=== PATIENT | male | born 1945 | race Two or more races ===

== ENCOUNTER 2024-06-23 19:42 | Emergency (ER) | payer OTHER, MEDICAID, SELFPAY ==
[2024-06-23 20:08] VITALS: BP 109/65; PULSE 88; RESP 18; TEMP 37.2; O2SAT 98
--- NOTE | 2024-06-23 20:18 | EKG_ITS ---
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
[2024-06-23 20:19] VITALS: BMI 20.5
--- NOTE | 2024-06-23 20:39 | XR_ITS ---
Examination: PA chest single view Technique: Upright PA chest single view Exam date and time: June 23, 2024 at 2045 hrs. Comparison February 10, 2024 Indications: Chest pain today Findings: Normal heart size Mild elevation left hemidiaphragm Moderate hyperexpansion Prominent central pulmonary arteries No pneumonia or pulmonary edema Moderate osteopenia Impression: COPD No pneumonia or pulmonary edema
--- NOTE | 2024-06-23 20:40 | PD.EDRME ---
Rapid Medical Screening Exam RME Arrival date/time: 06/23/24 19:42 78M with history of prostate cancer (remission) and HTN presents to ED with 2 days of CP, ab, and back pain, as well as being unable to pee. Chief Complaint: Abdominal Pain Vital signs: Vital Signs Temperature 98.9 F 06/23/24 20:08 Pulse Rate 88 06/23/24 20:08 Respiratory Rate 18 06/23/24 20:08 Blood Pressure 109/65 06/23/24 20:08 Pulse Oximetry (%) 98 06/23/24 20:08 Oxygen Delivery Method Room Air 06/23/24 20:08
[2024-06-23 21:10] LABS: Basophils % (Auto) 0 % (0-2.5); Eosinophils # (Auto) 0.1 Thou/mm3 (0.0-0.5); Eosinophils % (Auto) 1 % (0-10); Hematocrit 33.6 % (41.0-53.0); Hemoglobin 11.2 g/dL (13.5-16.0); Immature Granulocytes % (Auto) 0 % (0-0); Immature Granulocytes Auto 0.01 Thou/mm3 (0.00-0.00); Lymphocytes # (Auto) 1.1 Thou/mm3 (1.0-4.8); Lymphocytes % (Auto) 13 % (10-50); Mean Corpuscular HGB Conc 33.3 g/dl (31.0-37.0); Mean Corpuscular Hemoglobin 25.7 pg (25.0-35.0); Mean Corpuscular Volume 77 fL (80-100); Monocytes # (Auto) 0.2 Thou/mm3 (0.0-0.8); Monocytes % (Auto) 2 % (0-12); Neutrophils # (Auto) 6.5 Thou/mm3 (1.8-7.7); Neutrophils % (Auto) 83 % (37-80); Nucleated Red Blood Cell % 0 /100 WBC (0); Platelet Count 253 Thou/mm3 (140-440); RDW Standard Deviation 50.5 fL (35.1-43.9); Red Blood Count 4.36 Miln/mm3 (4.50-5.90); White Blood Count 7.9 Thou/mm3 (3.8-10.6)
[2024-06-23 21:46] LABS: Alanine Aminotransferase 15 U/L (10-49); Albumin, Serum 4.3 gm/dL (3.4-4.8); Albumin/Globulin Ratio 1.7 (1.2-2.2); Alkaline Phosphatase 88 U/L (46-116); Anion Gap 7 (7-16); Aspartate Amino Transferase 32 U/L (0-34); BUN/Creatinine Ratio 27 Ratio (12-20); Bilirubin,Total 0.8 mg/dL (0.3-1.2); Blood Urea Nitrogen 24 mg/dL (9-23); Carbon Dioxide 24.1 mMol/L (20.0-31.0); Chloride 107 mMol/L (98-107); Creatinine (Component) 0.9 mg/dL (0.6-1.3); Estimated Creatinine Clearance 63.8 mL/min (>60); Globulin 2.6 gm/dL (2.3-3.5); Glucose 96 mg/dL (74-106); Lipase 44 U/L (12-53); Osmolality,Calculated 279 (275-295); Potassium 3.8 mMol/L (3.4-5.1); Sodium 138 mMol/L (136-145); Total Protein 6.9 gm/dL (5.7-8.2); Troponin I < 0.020 ng/mL (0.0-0.045); eGFR > 60 See Note
[2024-06-23 22:50] VITALS: BP 135/74; PULSE 73; RESP 18; O2SAT 100
[2024-06-23 23:19] LABS: Collection Type, Urine Catheter; Squamous Epithelial Cell,Urine 0 /hpf (0-5)
--- NOTE | 2024-06-23 23:20 | EDNOTE_ITS ---
ED Abdominal Pain RME/HPI General Chief Complaint: Abdominal Pain Stated complaint: ABDOMIAL PAIN Time seen by provider: 06/23/24 22:36 Arrival date/time: 06/23/24 19:42 Limitations: no limitations RME / HPI RME / HPI narrative: 06/23/24 19:42 78M with history of prostate cancer (remission) and HTN presents to ED with 2 days of CP, ab, and back pain, as well as being unable to pee. Dr. Wilkins's Main ED Evaluation: 78yo male with a history of prostate CA in remission, HTN presents to the ED for complaints of difficulty urinating and lower abdominal discomfort. Patient states he started having difficulty urinating yesterday, reporting his urine output decreased today. He states he started having abdominal discomfort, so he came in for evaluation. He denies any back pain, fever, chills or any other associated symptoms. No known allergies. Related Data Previous Rx's ?Medication ?Instructions ?Recorded ibuprofen 600 mg tablet 600 mg PO Q6HR PRN PAIN #30 tabs 02/08/14 cyclobenzaprine 10 mg tablet 10 mg PO TID PRN muscle s pasm #30 02/10/24 tabs ibuprofen 600 mg tablet 600 mg PO TID PRN pain #30 t abs 02/10/24 Allergies Allergy/AdvReac Type Severity Reaction Status Date / Time No Known Allergies Allergy Verified 06/23/24 19:48 Review of Systems Review of Systems Systems Reviewed: All systems reviewed, normal except as documented ED Exam General Limitations: Present no limitations General appearance: Present alert and in no apparent distress Head Head exam: Present atraumatic Eye Eye exam: Present normal appearance, PERRL and EOMI ENT ENT exam: Present normal exam, normal oropharynx and mucous membranes moist Neck Neck exam: Present normal inspection, full ROM and trachea midline Chest Chest inspection: Present normal inspection and symmetric chest wall rise Respiratory Respiratory exam: Present normal lung sounds bilaterally Cardiovascular Cardiovascular exam: Present regular rate, normal rhythm and normal heart sounds Abdominal Exam Abdominal exam: Present soft and normal bowel sounds; Absent mass exam: Present other (has an indwelling catheter that is draining yellow urine) Extremities Exam Extremities exam: Present normal inspection and full ROM Back Exam Back exam: Present normal inspection and full ROM; Absent CVA tenderness (R) or CVA tenderness (L) Neurological Exam Neurological exam: Present alert, oriented X3 and CN II-XII intact Psychiatric Psychiatric exam: Present normal affect and normal mood Skin Skin exam: Present warm, dry, intact and normal color Course Quality Measures none Orders Category Date Time Status EKG (ED ONLY) *Do not use* NOW Care 06/23/24 20:18 Completed In and Out Catheter X1 Care 06/23/24 20:39 Active EKG (ED Only) Stat Exams 06/23/24 20:18 Draft XR chest 1V portable Stat Exams 06/23/24 20:39 Completed CBC Stat Lab 06/23/24 20:54 Completed Comprehensive Metabolic Panel Stat Lab 06/23/24 20:54 Completed Lipase Stat Lab 06/23/24 20:54 Completed Troponin I Stat Lab 06/23/24 20:54 Completed Urinalysis, C/S if Indicated Stat Lab 06/23/24 23:04 Completed Vital Signs Vital signs: Vital Signs Temperature 98.9 F 06/23/24 20:08 Pulse Rate 88 06/23/24 20:08 Respiratory Rate 18 06/23/24 20:08 Blood Pressure 109/65 06/23/24 20:08 Pulse Oximetry (%) 98 06/23/24 20:08 Oxygen Delivery Method Room Air 06/23/24 20:08 Abdominal Pain MDM Patient data External records reviewed:: [facility] previous records (Per chart review, patient has no relevant previous ED visits.) Clinical information provided by:: patient Social determinants that could affect healthcare access:: none Patient has the following chronic illnesses:: prostate CA in remission, HTN How is presenting disease/condition affected by chronic disease/condition?: uneffected by Evaluation data The following diagnostics were reviewed and interpreted by me:: lab results and radiology exam(s) Lab and/or radiology exams considered but not ordered:: none Interpretation Summary: CBC is normal, CMP is normal, Troponin is normal, Lipase is normal, UA is unremarkable, according to my interpretation. EKG done at 2023, NSR, rate of 76, PVCs, no ST elevations or depressions, normal intervals, PVCs are new compared to previous EKG in 01/2024, according to my interpretation. [facility] Report Signed Patient: JEREL THORNE Med. Record#: [id number] Birthdate: 1945 Age/Sex: 78 / M Location: [facility] Attending Dr: Ordering Physician: Hugh Cruz PA-C Date of Service: 06/23/24 Procedure(s): XR chest 1V portable Accession Number(s): [id number] cc: Arvin Lemus MD; Hugh Cruz PA-C~ Examination: PA chest single view Technique: Upright PA chest single view Exam date and time: June 23, 2024 at 2045 hrs. Comparison February 10, 2024 Indications: Chest pain today Findings: Normal heart size Mild elevation left hemidiaphragm Moderate hyperexpansion Prominent central pulmonary arteries No pneumonia or pulmonary edema Moderate osteopenia Impression: COPD No pneumonia or pulmonary edema Dictated By: Arvin Lemus MD Signed By: <Electronically signed by Arvin Lemus MD in OV> 06/23/242101 Medications / Prescriptions Medications or Prescriptions considered but not ordered:: none Medication administrations:: see above, if any Consultations Consultation(s) initiated? (list below): No Diagnosis Differential diagnosis abdominal pain: calculus of kidney and other (urinary retention, UTI, BPH) Most likely diagnosis given after review of the tests above:: see below Admission Indicated Admission indicated?: not indicated Admission Request Was there a request for admission?: No Disposition Plan Disposition Plan: Discharge Discharge Attestation Discharge Attestation: The patient and all family members were given an opportunity to ask questions and understood the discharge instructions. Discharge instructions specifically effects, indications for sooner follow up or return to the emergency department, and the expected course of current diagnosis. Patient condition: Stable Discharge Plan Prescriptions/Referrals Prescriptions/Med Rec: No Action ibuprofen 600 MG tablet 600 mg PO Q6HR PRN (Reason: PAIN) Qty: 30 0RF cyclobenzaprine 10 mg tablet 10 mg PO TID PRN (Reason: muscle spasm) Qty: 30 0RF ibuprofen 600 mg tablet 600 mg PO TID PRN (Reason: pain) Qty: 30 0RF Referrals: Hyacinth Nelson MD [Primary Care Provider] - In 1 week Patient/Caregiver Discharge Instructions Print Language: Japanese
[2024-06-23 23:25] LABS: Bilirubin,Urine Negative (Negative); Blood,Urine 1+ (Negative); Clarity,Urine Clear (Clear/Hazy); Color,Urine Yellow (Lt Yel-Yel); Culture Indicated,Urine Not Indicated; Glucose, Urine Negative (Negative); Ketones,Urine Trace (Negative); Leukocyte Esterase,Urine Negative (Negative); Nitrite,Urine Negative (Negative); Protein,Urine Trace (Neg - Trace); RBC,Urine 4 /hpf (0-3); Specific Gravity,Urine 1.028 (1.001-1.035); Urobilinogen,Urine Negative mg/dL (0.0-1.0); WBC,Urine 1 /hpf (0-5)
== END 2024-06-24 01:12 | disposition home or self-care (01) ==
PROVIDERS: Physician Assistant; Emergency Provider Emergency Medicine; PCP Internal Medicine
DX: R10.30 Lower abdominal pain, unspecified (principal); R39.11 Hesitancy of micturition; J44.9 Chronic obstructive pulmonary disease, unspecified; I49.3 Ventricular premature depolarization; I10 Essential (primary) hypertension; Z85.46 Personal history of malignant neoplasm of prostate
CPT/HCPCS: 36415; 71045; 80053; 81001; 83690; 84484; 85025; 93005; 99283

== ENCOUNTER 2024-06-27 11:48 | Emergency (ER) | payer OTHER, MEDICAID, SELFPAY ==
[2024-06-27 12:08] VITALS: BP 131/83; PULSE 67; RESP 17; TEMP 36.6; O2SAT 100; BMI 20.5
--- NOTE | 2024-06-27 12:14 | EDNOTE_ITS ---
ED General RME/HPI General Chief complaint: General Adult/Misc Complain Stated complaint: GET DAVIS REMOVED, PLACED 2-3 DAYS Time Seen by Provider: 06/27/24 12:04 Source: patient Arrival date/time: 06/27/24 11:48 78-year-old male with a history of prostate cancer that is in remission, hyp ertension presents to the emergency room with a chief complaint of wanting to get his Davis catheter removed. The catheter was placed on June 23, 2024 for urinary retention. Patient states he is aware over the catheter placed but states he wants it removed. Patient states he does not want the catheter in and states that he wants it removed and if his urinary retention returns he will return to the emergency room. Mode of arrival: ambulatory Limitations: no limitations Related Data Previous Rx's ?Medication ?Instructions ?Recorded ibuprofen 600 mg tablet 600 mg PO Q6HR PRN PAIN #30 tabs 02/08/14 cyclobenzaprine 10 mg tablet 10 mg PO TID PRN muscle s pasm #30 02/10/24 tabs ibuprofen 600 mg tablet 600 mg PO TID PRN pain #30 t abs 02/10/24 Allergies Allergy/AdvReac Type Severity Reaction Status Date / Time No Known Allergies Allergy Verified 06/27/24 11:53 Review of Systems Review of Systems Systems Reviewed: All systems reviewed, normal except as documented Constitutional Constitutional: Reports system reviewed and no additional complaints, except as documented, Denies fatigue, Denies fever(s), Denies headache(s) and Denies weakness Eyes Eyes: Reports system reviewed and no additional complaints, except as documented, Denies blurry vision and Denies change in vision ENT Ears, Nose, Mouth, and Throat: Reports system reviewed and no additional complaints, except as documented, Denies otalgia, Denies headache(s), Denies nasal congestion, Denies throat swelling and Denies vertigo Cardiovascular Cardiovascular: Reports system reviewed and no additional complaints, except as documented, Denies chest pain, Denies dyspnea and Denies dyspnea on exertion Respiratory Respiratory: Reports system reviewed and no additional complaints, except as documented, Denies chest congestion, Denies cough, Denies dyspnea, Denies dyspnea on exertion and Denies wheezing Gastrointestinal Gastrointestinal: Reports system reviewed and no additional complaints, except as documented, Denies abdominal pain, Denies cramping, Denies nausea and Denies vomiting Genitourinary Genitourinary: Reports system reviewed and no additional complaints, except as documented, Denies dysuria and Denies hematuria Musculoskeletal Musculoskeletal: Reports system reviewed and no additional complaints, except as documented and Denies back pain Integumentary/Breasts Skin/Breast: Reports system reviewed and no additional complaints, except as documented and Denies wounds Neurologic Neurologic: Reports system reviewed and no additional complaints, except as documented, Denies confusion, Denies headache(s), Denies lack of coordination, Denies vertigo and Denies weakness Psychiatric Psychiatric: Reports system reviewed and no additional complaints, except as documented, Denies anxiety, Denies confusion, Denies depression, Denies paranoia, Denies suicidal ideation and Denies tactile hallucinations Endocrine Endocrine: Reports system reviewed and no additional complaints, except as documented and Denies fatigue Hematologic/Lymphatic Hematologic/Lymphatic: Reports system reviewed and no additional complaints, except as documented and Denies lymphadenopathy Allergic/Immunologic Allergic/Immunologic: Reports system reviewed and no additional complaints, except as documented, Denies throat swelling, Denies urticaria and Denies wheezing Past Medical History Social History SMOKING STATUS: Former smoker ED Exam General Limitations: Present no limitations General appearance: Present alert and in no apparent distress Head Head exam: Present atraumatic Eye Eye exam: Present normal appearance, PERRL and EOMI ENT ENT exam: Present normal exam, normal oropharynx and mucous membranes moist Neck Neck exam: Present normal inspection, full ROM and trachea midline Chest Chest inspection: Present normal inspection and symmetric chest wall rise Respiratory Respiratory exam: Present normal lung sounds bilaterally Cardiovascular Cardiovascular exam: Present regular rate, normal rhythm and normal heart sounds Abdominal Exam Abdominal exam: Present soft and normal bowel sounds Extremities Exam Extremities exam: Present normal inspection and full ROM Back Exam Back exam: Present normal inspection and full ROM Neurological Exam Neurological exam: Present alert, oriented X3 and CN II-XII intact Psychiatric Psychiatric exam: Present normal affect and normal mood Skin Skin exam: Present warm, dry, intact and normal color Course Quality Measures none Orders Category Date Time Status Davis [Urinary Catheter, Remove] ONCE Care 06/27/24 12:07 Active Vital Signs Vital signs: Vital Signs Temperature 97.9 F 06/27/24 12:08 Pulse Rate 67 06/27/24 12:08 Respiratory Rate 17 06/27/24 12:08 Blood Pressure 131/83 H 06/27/24 12:08 Pulse Oximetry (%) 100 06/27/24 12:08 Oxygen Delivery Method Room Air 06/27/24 12:08 MDM Patient data External records reviewed:: [facility] previous records Clinical information provided by:: patient Social determinants that could affect healthcare access:: none Patient has the following chronic illnesses:: No chronic illness How is presenting disease/condition affected by chronic disease/condition?: no chronic disease Evaluation data The following diagnostics were reviewed and interpreted by me:: lab results and radiology exam(s) Lab and/or radiology exams considered but not ordered:: Labs and radiology exams considered and ordered Interpretation Summary: N/A Medications Medications considered but not ordered:: No medication given Medication administrations:: No medication given Consultations Consultation(s) initiated? (list below): No Diagnosis Differential Diagnosis ED Complaint MDM: Urinary catheter removal Most likely diagnosis given after review of the tests above:: Urinary catheter removal Admission Indicated Admission indicated?: not indicated Explain why admission is indicated or not indicated:: N/A Admission Request Was there a request for admission?: No Disposition Plan Disposition Plan: Discharge Discharge Attestation Discharge Attestation: The patient and all family members were given an opportunity to ask questions and understood the discharge instructions. Discharge instructions specifically effects, indications for sooner follow up or return to the emergency department, and the expected course of current diagnosis. Patient condition: Stable Medical Decision Making [facility] Narrative MDM Narrative: 78-year-old male with a history of prostate cancer that is in remission, hypertension presents to the emergency room with a chief complaint of wanting to get his Davis catheter removed. The catheter was placed on June 23, 2024 for urinary retention. Patient states he is aware over the catheter placed but states he wants it removed. Patient states he does not want the catheter in and states that he wants it removed and if his urinary retention returns he will return to the emergency room. Patient is hemodynamically stable and in no apparent distress Patient has a soft nontender abdomen. Catheter was removed with no complications. The patient was placed in the lobby and within 45 minutes the patient urinated. Patient was educated that this catheter was placed for urinary retention that is very likely that the symptoms will return. The patient was very adamant about removing this urinary catheter and states to please remove it and that he this returns he will be back to the emergency room to put the catheter in place again. Catheter was removed the patient gave a urine sample and patient was discharged and educated to follow-up with his primary care provider, urologist and return to the emergency room for any evidence of worsening signs or symptoms Differential Diagnosis Differential Diagnosis: Urinary catheter removal Discharge Plan Plan Patient Disposition: HOME (Self Care) Disposition Comment: Stable Prescriptions/Referrals Prescriptions/Med Rec: No Action ibuprofen 600 MG tablet 600 mg PO Q6HR PRN (Reason: PAIN) Qty: 30 0RF cyclobenzaprine 10 mg tablet 10 mg PO TID PRN (Reason: muscle spasm) Qty: 30 0RF ibuprofen 600 mg tablet 600 mg PO TID PRN (Reason: pain) Qty: 30 0RF Referrals: Hyacinth Nelson MD [Primary Care Provider] - In 1 week Problem List Clinical Impression: Encounter for removal of urinary catheter Patient/Caregiver Discharge Instructions Additional Instructions: Por favor, consulte con henderson m?dico de cabecera en las pr?ximas 24 a 48 horas. Por favor, no falte a henderson renetta con henderson ur?logo. Si hay evidencia de empeoramiento de los signos o s?ntomas, regrese a la pawan de emergencias de inmediato. Print Language: Urdu Stand Alone Forms: Leanne Award Info., Patient Portal Info Letter MEMO/CHACHA Supervising Physician MEMO/CHACHA Supervising Physician: Dr. Mora
== END 2024-06-27 13:07 | disposition home or self-care (01) ==
PROVIDERS: Emergency Provider Emergency Medicine; PCP Internal Medicine
DX: Z46.6 Encounter for fitting and adjustment of urinary device (principal)
CPT/HCPCS: 99282

== ENCOUNTER 2024-06-28 00:09 | Emergency (ER) | payer OTHER, MEDICAID, SELFPAY ==
[2024-06-28 00:21] VITALS: BP 127/71; PULSE 68; RESP 16; TEMP 36.8; O2SAT 99
--- NOTE | 2024-06-28 00:46 | EDNOTE_ITS ---
ED Male Genitalurinary RME/HPI General Chief complaint: Urogenital-Male Stated complaint: CANT PEE Time Seen by Provider: 06/28/24 00:34 Arrival date/time: 06/28/24 00:09 78M with history of prostate cancer (remission) and HTN presents to ED with urinary retention. Patient was here yesterday and wanted the Gifford out because it was uncomfortable. Now he can't pee. Limitations: no limitations Related Data Previous Rx's ?Medication ?Instructions ?Recorded ibuprofen 600 mg tablet 600 mg PO Q6HR PRN PAIN #30 tabs 02/08/14 cyclobenzaprine 10 mg tablet 10 mg PO TID PRN muscle s pasm #30 02/10/24 tabs ibuprofen 600 mg tablet 600 mg PO TID PRN pain #30 t abs 02/10/24 Allergies Allergy/AdvReac Type Severity Reaction Status Date / Time No Known Allergies Allergy Verified 06/27/24 11:53 Review of Systems Review of Systems Systems Reviewed: All systems reviewed, normal except as documented Constitutional Constitutional: Reports system reviewed and no additional complaints, except as documented, Denies fever(s) and Denies headache(s) ENT Ears, Nose, Mouth, and Throat: Denies disequilibrium and Denies headache(s) Cardiovascular Cardiovascular: Reports system reviewed and no additional complaints, except as documented, Denies chest pain and Denies dyspnea Respiratory Respiratory: Reports system reviewed and no additional complaints, except as documented, Denies cough and Denies dyspnea Gastrointestinal Gastrointestinal: Reports system reviewed and no additional complaints, except as documented, Denies abdominal pain, Denies nausea and Denies vomiting Genitourinary Genitourinary: Reports as per HPI and Reports difficulty urinating Neurologic Neurologic: Reports system reviewed and no additional complaints, except as documented, Denies confusion, Denies disequilibrium and Denies headache(s) Psychiatric Psychiatric: Denies confusion Past Medical History Social History SMOKING STATUS: Never smoker ED Exam General Limitations: Present no limitations General appearance: Present alert and in no apparent distress Head Head exam: Present atraumatic Eye Eye exam: Present normal appearance, PERRL and EOMI ENT ENT exam: Present normal exam, normal oropharynx and mucous membranes moist Neck Neck exam: Present normal inspection, full ROM and trachea midline Chest Chest inspection: Present normal inspection and symmetric chest wall rise Respiratory Respiratory exam: Present normal lung sounds bilaterally Cardiovascular Cardiovascular exam: Present regular rate, normal rhythm and normal heart sounds Abdominal Exam Abdominal exam: Present soft and normal bowel sounds Extremities Exam Extremities exam: Present normal inspection and full ROM Back Exam Back exam: Present normal inspection and full ROM Neurological Exam Neurological exam: Present alert, oriented X3 and CN II-XII intact Psychiatric Psychiatric exam: Present normal affect and normal mood Skin Skin exam: Present warm, dry, intact and normal color Course Quality Measures none Orders Category Date Time Status Catheter [Urinary Catheter] QS Care 06/28/24 00:35 Active Gifford to Leg Bag Routine Care 06/28/24 00:35 Ordered Vital Signs Vital signs: Vital Signs Temperature 98.2 F 06/28/24 00:21 Pulse Rate 68 06/28/24 00:21 Respiratory Rate 16 06/28/24 00:21 Blood Pressure 127/71 06/28/24 00:21 Pulse Oximetry (%) 99 06/28/24 00:21 Oxygen Delivery Method Room Air 06/28/24 00:21 O2 at 99% on RA and WNLs Urogenital - Male MDM Narrative MDM Narrative:: 78M with history of prostate cancer (remission) and HTN presents to ED with urinary retention. Patient was here yesterday and wanted the Gifford out because it was uncomfortable. Now he can't pee. Physical exam reveals no ab tenderness. Patient is afebrile, calm, and alert. Gifford put back in. Urine flowed freely. Patient data External records reviewed:: [facility] previous records Clinical information provided by:: patient Social determinants that could affect healthcare access:: none Patient has the following chronic illnesses:: history of prostate cancer (remission) and HTN How is presenting disease/condition affected by chronic disease/condition?: exacerbated by Evaluation data The following diagnostics were reviewed and interpreted by me:: other (specify) (none) Lab and/or radiology exams considered but not ordered:: not ordered Interpretation Summary: n/a Medications / Prescriptions Medications or Prescriptions considered but not ordered:: not ordered Medication administrations:: n/a Consultations Consultation(s) initiated? (list below): No Diagnosis Urogenital Male Differential Diagnosis: urinary tract infection, priapism, urethritis, epididymitis, genital herpes simplex, prostatitis, acute retention of urine and inguinal hernia Most likely diagnosis given after review of the tests above:: acute urinary retention Admission Indicated Admission indicated?: not indicated Admission Request Was there a request for admission?: No Disposition Plan Disposition Plan: Discharge Discharge Attestation Discharge Attestation: The patient and all family members were given an opportunity to ask questions and understood the discharge instructions. Discharge instructions specifically effects, indications for sooner follow up or return to the emergency department, and the expected course of current diagnosis. Patient condition: Stable Discharge Plan Plan Patient Disposition: HOME (Self Care) Disposition Comment: Stable Prescriptions/Referrals Prescriptions/Med Rec: No Action ibuprofen 600 MG tablet 600 mg PO Q6HR PRN (Reason: PAIN) Qty: 30 0RF cyclobenzaprine 10 mg tablet 10 mg PO TID PRN (Reason: muscle spasm) Qty: 30 0RF ibuprofen 600 mg tablet 600 mg PO TID PRN (Reason: pain) Qty: 30 0RF Problem List Clinical Impression: Acute urinary retention Patient/Caregiver Discharge Instructions Education Materials: ED Urinary Retention, Male Additional Instructions: Please follow-up with PCP within 24-48 hours and return immediately if symptoms worsen. See PCP for void trial. Print Language: Sami Stand Alone Forms: Patient Portal Info Letter MEMO/CHACHA Supervising Physician LAZARA Supervising Physician: Dr. Osborne
== END 2024-06-28 01:22 | disposition home or self-care (01) ==
LOC: SERX 01:17
PROVIDERS: Emergency Provider Emergency Medicine; PCP Internal Medicine
DX: R33.9 Retention of urine, unspecified (principal); I10 Essential (primary) hypertension
CPT/HCPCS: 51702; 99283

== ENCOUNTER 2024-07-12 05:39 | Emergency (ER) | payer OTHER, MEDICAID, SELFPAY ==
[2024-07-12 05:39] VITALS: BMI 20.5
[2024-07-12 06:01] VITALS: BP 163/67; PULSE 64; RESP 16; TEMP 36.6; O2SAT 98
--- NOTE | 2024-07-12 06:19 | PD.EDMALE ---
ED Male Genitalurinary RME/HPI General Chief complaint: Urogenital-Male Stated complaint: CATHETER REMOVAL Time Seen by Provider: 07/12/24 06:10 Arrival date/time: 07/12/24 05:39 78-year-old male with history of urinary retention presents stating that he was like his catheter removed Limitations: no limitations Related Data Previous Rx's ?Medication ?Instructions ?Recorded ibuprofen 600 mg tablet 600 mg PO Q6HR PRN PAIN #30 tabs 02/08/14 cyclobenzaprine 10 mg tablet 10 mg PO TID PRN muscle spasm #30 02/10/24 tabs ibuprofen 600 mg tablet 600 mg PO TID PRN pain #30 tabs 02/10/24 Allergies Allergy/AdvReac Type Severity Reaction Status Date / Time No Known Allergies Allergy Verified 06/27/24 11:53 Review of Systems Review of Systems Systems Reviewed: All systems reviewed, normal except as documented Constitutional Constitutional: Reports system reviewed and no additional complaints, except as documented, Denies fever(s) and Denies headache(s) Eyes Eyes: Reports system reviewed and no additional complaints, except as documented and Denies blurry vision ENT Ears, Nose, Mouth, and Throat: Reports system reviewed and no additional complaints, except as documented, Denies headache(s), Denies nasal congestion and Denies nasal discharge Cardiovascular Cardiovascular: Reports system reviewed and no additional complaints, except as documented, Denies chest pain and Denies dyspnea Respiratory Respiratory: Reports system reviewed and no additional complaints, except as documented, Denies chest congestion, Denies cough and Denies dyspnea Gastrointestinal Gastrointestinal: Reports system reviewed and no additional complaints, except as documented and Denies abdominal pain Genitourinary Genitourinary: Reports system reviewed and no additional complaints, except as documented and Reports other (Gifford catheter in place) Integumentary/Breasts Skin/Breast: Reports system reviewed and no additional complaints, except as documented and Denies rash Neurologic Neurologic: Reports system reviewed and no additional complaints, except as documented, Reports as per HPI and Denies headache(s) Past Medical History Social History SMOKING STATUS: Never smoker ED Exam General Limitations: Present no limitations General appearance: Present alert and in no apparent distress Head Head exam: Present atraumatic Eye Eye exam: Present normal appearance, PERRL and EOMI ENT ENT exam: Present normal exam, normal oropharynx and mucous membranes moist Neck Neck exam: Present normal inspection, full ROM and trachea midline Chest Chest inspection: Present normal inspection and symmetric chest wall rise Respiratory Respiratory exam: Present normal lung sounds bilaterally Cardiovascular Cardiovascular exam: Present regular rate, normal rhythm and normal heart sounds Abdominal Exam Abdominal exam: Present soft and normal bowel sounds; Absent distention, tenderness, guarding, rebound or rigidity Extremities Exam Extremities exam: Present normal inspection and full ROM Back Exam Back exam: Present normal inspection and full ROM Neurological Exam Neurological exam: Present alert, oriented X3 and CN II-XII intact Psychiatric Psychiatric exam: Present normal affect and normal mood Skin Skin exam: Present warm, dry, intact and normal color Course Quality Measures none Orders Category Date Time Status Gifford [Urinary Catheter, Remove] ONCE Care 07/12/24 06:16 Completed Vital Signs Vital signs: Vital Signs Temperature 97.9 F 07/12/24 06:01 Pulse Rate 64 07/12/24 06:01 Respiratory Rate 16 07/12/24 06:01 Blood Pressure 163/67 H 07/12/24 06:01 Pulse Oximetry (%) 98 07/12/24 06:01 Oxygen Delivery Method Room Air 07/12/24 06:01 O2 saturation 98% room air within normal limits Urogenital - Male MDM Narrative MDM Narrative:: 78-year-old male with history of urinary retention with Gifford catheter in place request Gifford catheter removal Patient reports no fever nausea vomiting abdominal pain no distention patient reports that the catheter is irritating him and he no longer wants it. I did offer to replace the catheter patient declined Explained to the patient should he have difficulty urinating and has retention he must return for Gifford catheter placement patient states understanding Patient discharged home in no distress to follow-up with primary care doctor in the next 24 to 48 hours and for any worsening symptoms to return to the ER immediately Patient data External records reviewed:: [facility] previous records Clinical information provided by:: patient Social determinants that could affect healthcare access:: none Patient has the following chronic illnesses:: See history How is presenting disease/condition affected by chronic disease/condition?: caused by Evaluation data The following diagnostics were reviewed and interpreted by me:: other (specify) (N/A) Lab and/or radiology exams considered but not ordered:: Considered not ordered Interpretation Summary: N/A Medications / Prescriptions Medications or Prescriptions considered but not ordered:: No meds Medication administrations:: No meds Consultations Consultation(s) initiated? (list below): No Diagnosis Urogenital Male Differential Diagnosis: urinary tract infection and acute retention of urine Most likely diagnosis given after review of the tests above:: Encounter for Gifford catheter removal Admission Indicated Admission indicated?: not indicated Admission Request Was there a request for admission?: No Disposition Plan Disposition Plan: Discharge Discharge Attestation Discharge Attestation: The patient and all family members were given an opportunity to ask questions and understood the discharge instructions. Discharge instructions specifically effects, indications for sooner follow up or return to the emergency department, and the expected course of current diagnosis. Patient condition: Stable Discharge Plan Plan Patient Disposition: HOME (Self Care) Disposition Comment: Stable Prescriptions/Referrals Prescriptions/Med Rec: No Action ibuprofen 600 MG tablet 600 mg PO Q6HR PRN (Reason: PAIN) Qty: 30 0RF cyclobenzaprine 10 mg tablet 10 mg PO TID PRN (Reason: muscle spasm) Qty: 30 0RF ibuprofen 600 mg tablet 600 mg PO TID PRN (Reason: pain) Qty: 30 0RF Problem List Clinical Impression: Encounter for Gifford catheter removal Patient/Caregiver Discharge Instructions Additional Instructions: Please follow up with your primary care doctor in the next 24-48hrs for any worsening symptoms return here immediately If you do not urinate within the next 6 to 8 hours you must return for Gifford catheter placement Print Language: Rwandan Stand Alone Forms: Leanne Award Info., Patient Portal Info Letter PA/LACING CUTTER Supervising Physician MEMO/CHACHA Supervising Physician: Dr. galvez
[2024-07-12 06:28] VITALS: RESP 18
== END 2024-07-12 06:29 | disposition home or self-care (01) ==
LOC: SERX 06:26
PROVIDERS: Emergency Provider Family Medicine; PCP Family Medicine
DX: Z46.6 Encounter for fitting and adjustment of urinary device (principal)
CPT/HCPCS: 99282

== ENCOUNTER 2024-11-19 12:00 | Emergency (ER) | payer OTHER, MEDICAID, SELFPAY ==
[2024-11-19 12:01] VITALS: BMI 22.1
[2024-11-19 12:12] VITALS: BP 127/64; PULSE 72; RESP 19; TEMP 36.7; O2SAT 97
--- NOTE | 2024-11-19 12:19 | EKG_ITS ---
[facility] Test Date: 2024-11-19 Pat Name: JEREL THORNE Department: Room: - Gender: Male Television [employer] Tester: : 1945 Requested By: Frances Enriquez Order Number: [id number] Reading MD: Frances Enriquez Measurements Intervals [place] Rate: 71 P: 73 WI: 179 QRS: 74 QRSD: 77 T: 67 QT: 360 QTc: 394 Interpretive Statements SINUS RHYTHM Compared to ECG 06/23/2024 20:24:24 No significant changes /store/S0/[id number]/ecg/[id number].pdf
--- NOTE | 2024-11-19 12:19 | XR_ITS ---
Examination: AP chest single view Technique one AP portable chest single view Date and time: November 19, 2024, 12:36 PM Indications: Chest pain this week. Findings: Normal heart size. Minor subsegmental atelectasis left base. No lobar pneumonia or pulmonary edema Impression: Minor subsegmental atelectasis left base
--- NOTE | 2024-11-19 12:20 | PD.EDRME ---
Rapid Medical Screening Exam RME Arrival date/time: 11/19/24 12:00 This is a case of 78-year-old male with history of prediabetes came in in the emergency room due to chest pain and shortness of breath for 3 days worsening symptoms this patient decided to sought consult here in the emergency room Chief Complaint: Shortness of Breath/Dyspnea Vital signs: Vital Signs Temperature 98.0 F 11/19/24 12:12 Pulse Rate 72 11/19/24 12:12 Respiratory Rate 19 11/19/24 12:12 Blood Pressure 127/64 11/19/24 12:12 Pulse Oximetry (%) 97 11/19/24 12:12 Oxygen Delivery Method Room Air 11/19/24 12:12
[2024-11-19 12:49] LABS: Basophils # (Auto) 0.0 Thou/mm3 (0.0-0.2); Basophils % (Auto) 1 % (0-2.5); Eosinophils # (Auto) 0.1 Thou/mm3 (0.0-0.5); Eosinophils % (Auto) 1 % (0-10); Hematocrit 34.6 % (41.0-53.0); Hemoglobin 11.4 g/dL (13.5-16.0); Immature Granulocytes Auto 0.02 Thou/mm3 (0.00-0.00); Lymphocytes # (Auto) 1.7 Thou/mm3 (1.0-4.8); Lymphocytes % (Auto) 25 % (10-50); Mean Corpuscular HGB Conc 32.9 g/dl (31.0-37.0); Mean Corpuscular Hemoglobin 26.8 pg (25.0-35.0); Mean Corpuscular Volume 81 fL (80-100); Monocytes # (Auto) 0.5 Thou/mm3 (0.0-0.8); Monocytes % (Auto) 7 % (0-12); Neutrophils # (Auto) 4.7 Thou/mm3 (1.8-7.7); Neutrophils % (Auto) 67 % (37-80); Nucleated Red Blood Cell # 0.00 Thou/mm3 (0.00-0.00); Nucleated Red Blood Cell % 0 /100 WBC (0); Platelet Count 287 Thou/mm3 (140-440); RDW Standard Deviation 44.5 fL (35.1-43.9); Red Blood Count 4.26 Miln/mm3 (4.50-5.90); White Blood Count 7.0 Thou/mm3 (3.8-10.6)
[2024-11-19 13:13] LABS: Alanine Aminotransferase 25 U/L (10-49); Albumin, Serum 4.2 gm/dL (3.4-4.8); Albumin/Globulin Ratio 1.6 (1.2-2.2); Alkaline Phosphatase 94 U/L (46-116); Anion Gap 7 (7-16); Aspartate Amino Transferase 29 U/L (0-34); BUN/Creatinine Ratio 14 Ratio (12-20); Bilirubin,Total 0.5 mg/dL (0.3-1.2); Blood Urea Nitrogen 14 mg/dL (9-23); Calcium 8.8 mg/dL (8.3-10.6); Calcium (Corrected) 8.8 mg/dL (8.5-10.1); Carbon Dioxide 26.0 mMol/L (20.0-31.0); Chloride 105 mMol/L (98-107); Creatinine (Component) 1.0 mg/dL (0.6-1.3); Estimated Creatinine Clearance 62.1 mL/min (>60); Globulin 2.7 gm/dL (2.3-3.5); Glucose 94 mg/dL (74-106); Osmolality,Calculated 276 (275-295); Potassium 4.2 mMol/L (3.4-5.1); Sodium 138 mMol/L (136-145); Total Protein 6.9 gm/dL (5.7-8.2); Troponin I < 0.002 ng/mL (0.0-0.045); eGFR > 60 See Note
[2024-11-19 13:16] LABS: D-Dimer 833 ng/mL (<600)
[2024-11-19 13:37] LABS: B-Type Natriuretic Peptide 83 pg/mL (0-100)
--- NOTE | 2024-11-19 14:18 | XR_ITS ---
Examination: CTA chest with intravenous contrast 2-D reconstructions 3-D reconstructions, vascular Date and time of exam: November 19, 2024, 1746 hours INDICATIONS: Shortness of breath wheezing chest pain beginning last night CTDI: vol (mGy) 11.5 DLP: (mGycm) 311 Technique: Multiple axial sections of the thorax have been obtained. 3 mm slice thickness, from below the hemidiaphragms to above the apices of the lungs. Mediastinal and lung density settings have been obtained. 2-D sagittal and coronal reconstructions. 3-D angiographic renderings, 3-D volume renderings, 3D post processing, vascular maximum intensity projections obtained. Contrast administered is 100 cc Isovue-370 intravenous. Low dose protocols were performed. One or more of the following dose reduction techniques were used; automated exposure control, adjustment of the mA and/or KV according to patient size, use of iterative reconstruction technique. Findings: No thoracic aortic aneurysm dilatation No pulmonary artery emboli No peritracheal or tracheobronchial adenopathy COPD with areas of airspace distraction Mildly dilated bronchi in the lower lung zones 3 mm pulmonary nodule left upper lobe image 82 No lobar pneumonia No visualized liver or splenic lesion, cholelithiasis No pancreatic or adrenal mass No hydronephrosis Aorta normal size No bowel obstruction Prominent osteopenia IMPRESSION: No thoracic attic aneurysmal dilatation No pulmonary artery emboli COPD Mild bibasilar bronchiectasis 3 mm pulmonary nodule left upper lobe, with this study as baseline recommend 6 month follow-up CT chest without contrast Cholelithiasis
--- NOTE | 2024-11-19 14:25 | EDNOTE_ITS ---
ED SOB =RME/HPI General Chief Complaint: Shortness of Breath/Dyspnea Stated Complaint: SOB X1 WEEK, WORSE AT NIGHT Time Seen by Provider: 11/19/24 12:46 Arrival date/time: 11/19/24 12:00 Limitations: no limitations RME / HPI RME / HPI Narrative: 11/19/24 12:00 This is a case of 78-year-old male with history of prediabetes came in in the emergency room due to chest pain and shortness of breath for 3 days worsening symptoms this patient decided to sought consult here in the emergency room DR. THELMA CRAWFORD ED EVALUATION: 78-year-old male with past medical history of acute coronary syndrome status post stent placement, hypercholesterolemia, hypertension, and diabetes mellitus presents to the Emergency Department with complaint of increased shortness of breath today. He denies chest pain, palpitations, nausea, vomiting, or diarrhea. Recently traveled to [place]. No tobacco, alcohol, or drug use. Related Data Previous Rx's ?Medication ?Instructions ?Recorded ibuprofen 600 mg tablet 600 mg PO Q6HR PRN PAIN #30 tabs 02/08/14 cyclobenzaprine 10 mg tablet 10 mg PO TID PRN muscle s pasm #30 02/10/24 tabs ibuprofen 600 mg tablet 600 mg PO TID PRN pain #30 t abs 02/10/24 Allergies Allergy/AdvReac Type Severity Reaction Status Date / Time No Known Allergies Allergy Verified 11/19/24 12:03 Review of Systems Review of Systems Systems Reviewed: All systems reviewed, normal except as documented Past Medical History Social History SMOKING STATUS: Never smoker SUBSTANCE USE: does not use ALCOHOL: Never Past Medical History Comments PMH COMMENT: acute coronary syndrome status post stent placement, hypercholesterolemia, hypertension, and diabetes mellitus ED Exam General Limitations: Present no limitations General appearance: Present alert and in no apparent distress Head Head exam: Present atraumatic, normocephalic and normal inspection Eye Eye exam: Present normal appearance, PERRL and EOMI ENT ENT exam: Present normal exam, normal oropharynx and mucous membranes moist Neck Neck exam: Present normal inspection, full ROM and trachea midline Chest Chest inspection: Present normal inspection and symmetric chest wall rise Respiratory Respiratory exam: Present normal lung sounds bilaterally Cardiovascular Cardiovascular exam: Present regular rate, normal rhythm and normal heart sounds Abdominal Exam Abdominal exam: Present soft and normal bowel sounds Extremities Exam Extremities exam: Present normal inspection and full ROM Back Exam Back exam: Present normal inspection and full ROM Neurological Exam Neurological exam: Present alert, oriented X3 and CN II-XII intact Psychiatric Psychiatric exam: Present normal affect and normal mood Skin Skin exam: Present warm, dry, intact and normal color Course Quality Measures none Orders Category Date Time Status Bedside COVID-19 Antigen Test NOW Care 11/19/24 14:27 Active Bedside Influenza A&B Antigen Test NOW Care 11/19/24 14:[address] Screening NOW Care 11/19/24 14:18 Active EKG (ED ONLY) *Do not use* NOW Care 11/19/24 12:20 Completed Insert IV NOW Care 11/19/24 16:[address] angio chest Stat Exams 11/19/24 14:18 Taken EKG (ED Only) Stat Exams 11/19/24 12:19 Draft XR chest 1V portable Stat Exams 11/19/24 12:19 Completed BNP [B-Type Natriuretic Peptide] Stat Lab 11/19/24 12:35 Completed CBC Stat Lab 11/19/24 12:35 Completed CMP [Comprehensive Metabolic Panel] Stat Lab 11/19/24 12:35 Completed D-Dimer Stat Lab 11/19/24 12:35 Completed Troponin I Stat Lab 11/19/24 12:35 Completed Vital Signs Vital signs: Vital Signs Temperature 98.0 F 11/19/24 12:12 Pulse Rate 72 11/19/24 12:12 Respiratory Rate 19 11/19/24 12:12 Blood Pressure 127/64 11/19/24 12:12 Pulse Oximetry (%) 97 11/19/24 12:12 Oxygen Delivery Method Room Air 11/19/24 12:12 Shortness of Breath / Dyspnea MDM Narrative MDM Narrative:: ILiz am scribing for and in the presence of Dr. Man. Patient data External records reviewed:: [facility] previous records Clinical information provided by:: patient Social determinants that could affect healthcare access:: none Patient has the following chronic illnesses:: acute coronary syndrome status post stent placement, hypercholesterolemia, hypertension, and diabetes mellitus How is presenting disease/condition affected by chronic disease/condition?: exacerbated by Evaluation data The following diagnostics were reviewed and interpreted by me:: lab results, radiology exam(s) and EKG tracing(s) Lab and/or radiology exams considered but not ordered:: none Interpretation Summary: My interpretation: EKG performed at 1220 hours, sinus rhythm, rate 71, normal intervals, non specific ST-T wave changes, no cardiac alert Procedure(s): XR chest 1V portable Accession Number(s): [id number] cc: Eliceo Tierney MD; Arvin Lemus MD; Frances WildP~ Examination: AP chest single view Technique one AP portable chest single view Date and time: November 19, 2024, 12:36 PM Indications: Chest pain this week. Findings: Normal heart size. Minor subsegmental atelectasis left base. No lobar pneumonia or pulmonary edema Impression: Minor subsegmental atelectasis left base Dictated By: Arvin Lemus MD Medications / Prescriptions Medications or Prescriptions considered but not ordered:: none Medication administrations:: see above if any Consultations Consultation(s) initiated? (list below): No Diagnosis Shortness of Breath Differential Diagnosis: acute exacerbation of chronic obstructive airways disease, congestive heart failure, community acquired pneumonia and other (travel-related respiratory infection (histoplasmosis or COVID-19)) Most likely diagnosis given after review of the tests above:: No official diagnoses at this time, still pending diagnostic tests. Patient signout to the business development manager provider. Admission Indicated Admission indicated?: not indicated Explain why admission is indicated or not indicated:: No final disposition plan at this time, still pending diagnostic tests. Patient signout to the business development manager provider Admission Request Was there a request for admission?: No Disposition Plan Disposition Plan: other (specify) (Patient signed out to Dr. Méndez, pending chest CTA.) Discharge Plan Prescriptions/Referrals Prescriptions/Med Rec: No Action ibuprofen 600 MG tablet 600 mg PO Q6HR PRN (Reason: PAIN) Qty: 30 0RF cyclobenzaprine 10 mg tablet 10 mg PO TID PRN (Reason: muscle spasm) Qty: 30 0RF ibuprofen 600 mg tablet 600 mg PO TID PRN (Reason: pain) Qty: 30 0RF Referrals: Eliceo Tierney MD [Primary Care Provider] - In 1 week Patient/Caregiver Discharge Instructions Print Language: Jordanian
[2024-11-19 16:06] VITALS: BP 134/68; PULSE 62; RESP 14; TEMP 36.8; O2SAT 100
--- NOTE | 2024-11-19 17:42 | PC.NURSE ---
PATIENT LEFT FOR CT SCAN
[2024-11-19 18:16] VITALS: BP 149/71; PULSE 52; RESP 17; TEMP 36.7; O2SAT 99
--- NOTE | 2024-11-19 18:34 | PD.EDADDENDU ---
Emergency Room Addendum <Alisson Guevara - Last Filed: 11/19/24 18:34> Addendum Narrative: 1800: Care assumed from Dr. Man (emergency physician). Past medical, surgical, social and family history reviewed. Vitals and home medications reviewed. Results and treatment plan discussed. I will assume the care of the patient at this time and will follow the patient, pending Chest CTA. The following addendum documentation note is intended to reflect any pending information, findings, or radiology results not included in the patient?s initial chart by the previous shift scribe. <Dwain MéndezDO - Last Filed: 11/19/24 19:16> Addendum Narrative: 1800: Care assumed from Dr. Man (emergency physician). Past medical, surgical, social and family history reviewed. Vitals and home medications reviewed. Results and treatment plan discussed. I will assume the care of the patient at this time and will follow the patient, pending Chest CTA. The following addendum documentation note is intended to reflect any pending information, findings, or radiology results not included in the patient?s initial chart by the previous shift scribe. Patient was signed out to me awaiting results of the CT angiogram of the chest. CT angiogram of the chest showed no pulmonary embolism no pneumonia there was some lung changes compatible with COPD. There was no aortic dissection. Patient's vital signs are stable and O2 saturation is 100% on room air. EKG is nonischemic and troponin is not elevated. Patient is stable for discharge to follow-up with his doctor for further treatment and evaluation for his dyspnea.
[2024-11-19 19:31] VITALS: BP 144/74; PULSE 89; RESP 18; TEMP 36.7; O2SAT 99
== END 2024-11-19 19:32 | disposition home or self-care (01) ==
PROVIDERS: Nurse Practitioner Family; Emergency Provider Emergency Medicine; PCP Family Medicine
DX: J98.11 Atelectasis (principal); E78.00 Pure hypercholesterolemia, unspecified; I10 Essential (primary) hypertension; Z95.5 Presence of coronary angioplasty implant and graft
CPT/HCPCS: 36415; 71045; 71275; 80053; 83880; 84484; 85025; 85379; 87400; 87811; 93005; 99283; A4649; Q9967

== ENCOUNTER 2024-11-23 00:47 | Emergency (ER) | payer MEDICARE, MEDICAID, SELFPAY ==
[2024-11-23 00:48] VITALS: BMI 22.1
[2024-11-23 00:55] VITALS: BP 144/85; PULSE 74; RESP 18; TEMP 36.6; O2SAT 98
--- NOTE | 2024-11-23 01:10 | PD.EDMALE ---
ED Male Genitalurinary RME/HPI General Chief complaint: Urogenital-Male Stated complaint: DIFFICULTY URINATING Time Seen by Provider: 11/23/24 01:08 Arrival date/time: 11/23/24 00:47 78M with history of prostate cancer (remission) and HTN presents to ED with acute-onchronic urinary retention. Patient denies dysuria, but would like a Gifford cath to go home with. Limitations: no limitations Related Data Previous Rx's ?Medication ?Instructions ?Recorded ibuprofen 600 mg tablet 600 mg PO Q6HR PRN PAIN #30 tabs 02/08/14 cyclobenzaprine 10 mg tablet 10 mg PO TID PRN muscle spasm #30 02/10/24 tabs ibuprofen 600 mg tablet 600 mg PO TID PRN pain #30 tabs 02/10/24 Allergies Allergy/AdvReac Type Severity Reaction Status Date / Time No Known Allergies Allergy Verified 11/23/24 00:50 Review of Systems Review of Systems Systems Reviewed: All systems reviewed, normal except as documented Constitutional Constitutional: Reports system reviewed and no additional complaints, except as documented, Denies fever(s) and Denies headache(s) ENT Ears, Nose, Mouth, and Throat: Denies disequilibrium and Denies headache(s) Cardiovascular Cardiovascular: Reports system reviewed and no additional complaints, except as documented, Denies chest pain and Denies dyspnea Respiratory Respiratory: Reports system reviewed and no additional complaints, except as documented, Denies cough and Denies dyspnea Gastrointestinal Gastrointestinal: Reports system reviewed and no additional complaints, except as documented, Denies abdominal pain, Denies nausea and Denies vomiting Genitourinary Genitourinary: Reports as per HPI and Reports difficulty urinating Neurologic Neurologic: Reports system reviewed and no additional complaints, except as documented, Denies confusion, Denies disequilibrium and Denies headache(s) Psychiatric Psychiatric: Denies confusion Past Medical History Past Medical History CARDIAC: Negative Cardiac Disorders, Atherosclerotic Heart Disease, Hypercholesterolemia, Congestive Heart Failure or Hypertension RESPIRATORY: Positive Asthma; Negative Chronic Obstructive Pulmonary Disease (COPD) or Pneumonia GASTROINTESTINAL: Negative Gastrointestinal Disorders GENITOURINARY: Positive Prostate Cancer; Negative Renal Disease ENT: Negative Blind or Deafness ENDOCRINE: 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); Negative Diabetes Mellitus Type 1 HEMATOLOGIC: Negative Sickle Cell Disease OTHER HISTORY: Positive Cancer and Prostate Cancer Surgical History SURGICAL: Positive Cardiac Surgery and Coronary Stent Social History SMOKING STATUS: Never smoker SUBSTANCE USE: does not use ED Exam General Limitations: Present no limitations General appearance: Present alert and in no apparent distress Head Head exam: Present atraumatic Eye Eye exam: Present normal appearance, PERRL and EOMI ENT ENT exam: Present normal exam, normal oropharynx and mucous membranes moist Neck Neck exam: Present normal inspection, full ROM and trachea midline Chest Chest inspection: Present normal inspection and symmetric chest wall rise Respiratory Respiratory exam: Present normal lung sounds bilaterally Cardiovascular Cardiovascular exam: Present regular rate, normal rhythm and normal heart sounds Abdominal Exam Abdominal exam: Present soft and normal bowel sounds Extremities Exam Extremities exam: Present normal inspection and full ROM Back Exam Back exam: Present normal inspection and full ROM Neurological Exam Neurological exam: Present alert, oriented X3 and CN II-XII intact Psychiatric Psychiatric exam: Present normal affect and normal mood Skin Skin exam: Present warm, dry, intact and normal color Course Quality Measures none Orders Category Date Time Status Catheter [Urinary Catheter] QS Care 11/23/24 01:08 Active Gifford to Leg Bag Routine Care 11/23/24 01:08 Ordered Urinalysis, C/S if Indicated Stat Lab 11/23/24 01:05 Completed Vital Signs Vital signs: Vital Signs Temperature 97.9 F 11/23/24 00:55 Pulse Rate 74 11/23/24 00:55 Respiratory Rate 18 11/23/24 00:55 Blood Pressure 144/85 H 11/23/24 00:55 Pulse Oximetry (%) 98 11/23/24 00:55 Oxygen Delivery Method Room Air 11/23/24 00:55 O2 at 98% on RA and WNLs Urogenital - Male MDM Narrative MDM Narrative:: 78M with history of prostate cancer (remission) and HTN presents to ED with acute-onchronic urinary retention. Patient denies dysuria, but would like a Gifford cath to go home with. Physical exam reveals well-appearing male. Patient is afebrile, calm, and alert. UA clean. Given Gifford and genetic counsellor. Patient data External records reviewed:: [facility] previous records Clinical information provided by:: patient Social determinants that could affect healthcare access:: none Patient has the following chronic illnesses:: prostate cancer (remission) and HTN How is presenting disease/condition affected by chronic disease/condition?: exacerbated by Evaluation data The following diagnostics were reviewed and interpreted by me:: lab results Lab and/or radiology exams considered but not ordered:: ordered Interpretation Summary: above Medications / Prescriptions Medications or Prescriptions considered but not ordered:: not ordered Medication administrations:: n/a Consultations Consultation(s) initiated? (list below): No Diagnosis Urogenital Male Differential Diagnosis: urinary tract infection, priapism, urethritis, epididymitis, genital herpes simplex, prostatitis, acute retention of urine and inguinal hernia Most likely diagnosis given after review of the tests above:: urinary retention Admission Indicated Admission indicated?: not indicated Admission Request Was there a request for admission?: No Disposition Plan Disposition Plan: Discharge Discharge Attestation Discharge Attestation: The patient and all family members were given an opportunity to ask questions and understood the discharge instructions. Discharge instructions specifically effects, indications for sooner follow up or return to the emergency department, and the expected course of current diagnosis. Patient condition: Stable Discharge Plan Plan Patient Disposition: HOME (Self Care) Discharge Disposition comment: Stable Prescriptions/Referrals Prescriptions/Med Rec: No Action ibuprofen 600 MG tablet 600 mg PO Q6HR PRN (Reason: PAIN) Qty: 30 0RF cyclobenzaprine 10 mg tablet 10 mg PO TID PRN (Reason: muscle spasm) Qty: 30 0RF ibuprofen 600 mg tablet 600 mg PO TID PRN (Reason: pain) Qty: 30 0RF Problem List Clinical Impression: Urinary retention Patient/Caregiver Discharge Instructions Education Materials: ED Urinary Retention, Male Additional Instructions: Please follow-up with PCP within 24-48 hours and return immediately if symptoms worsen. Print Language: Kuwaiti Stand Alone Forms: Patient Portal Info Letter MEMO/CHACHA Supervising Physician LAZARA Supervising Physician: Dr. Wilkins
[2024-11-23 01:19] LABS: Collection Type, Urine Clean Catch; Squamous Epithelial Cell,Urine 0 /hpf (0-5)
[2024-11-23 01:26] LABS: Bilirubin,Urine Negative (Negative); Blood,Urine Negative (Negative); Clarity,Urine Clear (Clear/Hazy); Color,Urine Lt-Yellow (Lt Yel-Yel); Culture Indicated,Urine Not Indicated; Glucose, Urine Negative (Negative); Ketones,Urine Negative (Negative); Leukocyte Esterase,Urine Negative (Negative); Nitrite,Urine Negative (Negative); PH,Urine 6.0 (5.0-7.0); Protein,Urine Negative (Neg - Trace); RBC,Urine 5 /hpf (0-3); Specific Gravity,Urine 1.024 (1.001-1.035); Urobilinogen,Urine Negative mg/dL (0.0-1.0); WBC,Urine < 1 /hpf (0-5)
== END 2024-11-23 02:05 | disposition home or self-care (01) ==
LOC: SERX 03:53
PROVIDERS: Physician Assistant; Emergency Provider Emergency Medicine
DX: R33.9 Retention of urine, unspecified (principal); Z85.46 Personal history of malignant neoplasm of prostate
CPT/HCPCS: 51702; 81001; 99284; A4314

== ENCOUNTER 2025-01-11 22:00 | Emergency (ER) | payer MEDICARE, MEDICAID, SELFPAY ==
[2025-01-11 22:02] VITALS: BMI 20.7
[2025-01-11 23:11] VITALS: BP 134/67; PULSE 76; RESP 17; TEMP 36.8; O2SAT 96
--- NOTE | 2025-01-11 23:15 | EDNOTE_ITS ---
ED Extremity Problem RME/HPI General Chief complaint: Extremity Injury, Lower Stated complaint: DRESSING CHANGE Time Seen by Provider: 01/11/25 23:13 Arrival date/time: 01/11/25 22:00 79M with history of prostate cancer, HTN and R knee surgery yesterday at [facility] presents to ED wanting his LEATHA wrap loosened because it is too tight. Limitations: no limitations Related Data Previous Rx's ?Medication ?Instructions ?Recorded ibuprofen 600 mg tablet 600 mg PO Q6HR PRN PAIN #30 tabs 02/08/14 cyclobenzaprine 10 mg tablet 10 mg PO TID PRN muscle s pasm #30 02/10/24 tabs ibuprofen 600 mg tablet 600 mg PO TID PRN pain #30 t abs 02/10/24 Allergies Allergy/AdvReac Type Severity Reaction Status Date / Time No Known Allergies Allergy Verified 01/11/25 22:08 Review of Systems Review of Systems Systems Reviewed: All systems reviewed, normal except as documented Past Medical History Past Medical History CARDIAC: Negative Cardiac Disorders, Atherosclerotic Heart Disease, Hypercholesterolemia, Congestive Heart Failure or Hypertension RESPIRATORY: Positive Asthma; Negative Chronic Obstructive Pulmonary Disease (COPD) or Pneumonia GASTROINTESTINAL: Negative Gastrointestinal Disorders GENITOURINARY: Positive Prostate Cancer; Negative Renal Disease ENT: Negative Blind or Deafness ENDOCRINE: 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); Negative Diabetes Mellitus Type 1 HEMATOLOGIC: Negative Sickle Cell Disease OTHER HISTORY: Positive Cancer and Prostate Cancer Surgical History SURGICAL: Positive Cardiac Surgery and Coronary Stent Social History SMOKING STATUS: Never smoker SUBSTANCE USE: does not use ED Exam General Limitations: Present no limitations General appearance: Present alert and in no apparent distress Head Head exam: Present atraumatic Neck Neck exam: Present normal inspection, full ROM and trachea midline Chest Chest inspection: Present normal inspection and symmetric chest wall rise Extremities Exam Extremities exam: Present full ROM and other (LEATHA around RLE) Neurological Exam Neurological exam: Present alert and oriented X3 Psychiatric Psychiatric exam: Present normal affect and normal mood Skin Skin exam: Present warm, dry, intact and normal color Course Quality Measures none Orders Category Date Time Status leatha wrap [Splint / Immobilizer] STAT Care 01/11/25 23:14 Active Vital Signs Vital signs: Vital Signs Temperature 98.3 F 01/11/25 23:11 Pulse Rate 76 01/11/25 23:11 Respiratory Rate 17 01/11/25 23:11 Blood Pressure 134/67 H 01/11/25 23:11 Pulse Oximetry (%) 96 01/11/25 23:11 Oxygen Delivery Method Room Air 01/11/25 23:11 O2 at 96% on RA and WNLs Extremity Problem MDM Narrative MDM Narrative:: 79M with history of prostate cancer, HTN and R knee surgery yesterday at [facility] presents to ED wanting his LEATHA wrap loosened because it is too tight. Physical exam reveals LEATHA around RLE. Distal motor and sensation intact. Patient is afebrile, calm, and alert. LEATHA wrap redone more loosely. Patient data External records reviewed:: [facility] previous records Clinical information provided by:: patient Social determinants that could affect healthcare access:: none Patient has the following chronic illnesses:: history of prostate cancer, HTN and R knee surgery yesterday How is presenting disease/condition affected by chronic disease/condition?: uneffected by Evaluation data The following diagnostics were reviewed and interpreted by me:: other (specify) (none) Lab and/or radiology exams considered but not ordered:: not ordered Interpretation Summary: n/a Medications / Prescriptions Medications or Prescriptions considered but not ordered:: not ordered Medication administrations:: n/a Consultations Consultation(s) initiated? (list below): No Diagnosis Extremity Problem Differential Diagnosis: herpes zoster, gout, cellulitis, superficial thrombophlebitis, deep venous thrombosis of upper extremity, lower extremity edema, deep vein thrombosis of lower extremity and other (postop exam) Most likely diagnosis given after review of the tests above:: postop exam Admission Indicated Admission indicated?: not indicated Admission Request Was there a request for admission?: No Disposition Plan Disposition Plan: Discharge Discharge Attestation Discharge Attestation: The patient and all family members were given an opportunity to ask questions and understood the discharge instructions. Discharge instructions specifically effects, indications for sooner follow up or return to the emergency department, and the expected course of current diagnosis. Patient condition: Stable Discharge Plan Plan Patient Disposition: HOME (Self Care) Discharge Disposition comment: Stable Prescriptions/Referrals Prescriptions/Med Rec: No Action ibuprofen 600 MG tablet 600 mg PO Q6HR PRN (Reason: PAIN) Qty: 30 0RF cyclobenzaprine 10 mg tablet 10 mg PO TID PRN (Reason: muscle spasm) Qty: 30 0RF ibuprofen 600 mg tablet 600 mg PO TID PRN (Reason: pain) Qty: 30 0RF Problem List Clinical Impression: Postoperative examination Patient/Caregiver Discharge Instructions Additional Instructions: Please follow-up with PCP within 24-48 hours and return immediately if symptoms worsen. Print Language: Wolof Stand Alone Forms: Patient Portal Info Letter PA/SLASHER RUNNER Supervising Physician PA/SLASHER RUNNER Supervising Physician: Dr. Méndez
== END 2025-01-11 23:26 | disposition home or self-care (01) ==
LOC: SERX 23:41
PROVIDERS: Emergency Provider Emergency Medicine; PCP Family Medicine
DX: Z48.01 Encounter for change or removal of surgical wound dressing (principal)
CPT/HCPCS: 99284

== ENCOUNTER 2025-01-27 01:09 | Emergency (ER) | payer MEDICARE, MEDICAID, SELFPAY ==
[2025-01-27 01:11] VITALS: BMI 20.9
--- NOTE | 2025-01-27 01:15 | PD.EDADULT ---
ED General RME/HPI General Chief complaint: Shortness of Breath/Dyspnea Stated complaint: TROUBLE BREATHING SINCE YESTERDAY Time Seen by Provider: 01/27/25 01:15 Arrival date/time: 01/27/25 01:09 Related Data Previous Rx's ?Medication ?Instructions ?Recorded ibuprofen 600 mg tablet 600 mg PO Q6HR PRN PAIN #30 tabs 02/08/14 cyclobenzaprine 10 mg tablet 10 mg PO TID PRN muscle spasm #30 02/10/24 tabs ibuprofen 600 mg tablet 600 mg PO TID PRN pain #30 tabs 02/10/24 Allergies Allergy/AdvReac Type Severity Reaction Status Date / Time No Known Allergies Allergy Verified 01/27/25 01:11 Discharge Plan Prescriptions/Referrals Prescriptions/Med Rec: No Action ibuprofen 600 MG tablet 600 mg PO Q6HR PRN (Reason: PAIN) Qty: 30 0RF cyclobenzaprine 10 mg tablet 10 mg PO TID PRN (Reason: muscle spasm) Qty: 30 0RF ibuprofen 600 mg tablet 600 mg PO TID PRN (Reason: pain) Qty: 30 0RF Patient/Caregiver Discharge Instructions Print Language: Romansh
--- NOTE | 2025-01-27 01:16 | EKG_ITS ---
[facility] Test Date: 2025-01-27 Pat Name: JEREL THORNE Department: Room: - Gender: Male [employer]: : 1945 Requested By: Sharda Adams Order Number: [id number] Reading MD: Sharda Adams Measurements Intervals [place] Rate: 67 P: 77 RI: 179 QRS: 69 QRSD: 82 T: 72 QT: 357 QTc: 379 Interpretive Statements SINUS RHYTHM Compared to ECG 11/19/2024 12:20:24 No significant changes /store/S0/[id number]
[2025-01-27 01:19] VITALS: BP 136/60; PULSE 74; RESP 19; TEMP 36.6; O2SAT 99
--- NOTE | 2025-01-27 01:20 | EDNOTE_ITS ---
ED SOB =RME/HPI General Chief Complaint: Shortness of Breath/Dyspnea Stated Complaint: TROUBLE BREATHING SINCE YESTERDAY Time Seen by Provider: 01/27/25 01:15 Arrival date/time: 01/27/25 01:09 RME / HPI RME / HPI Narrative: See MDM for Dr. Mora's HPI documentation. Related Data Previous Rx's ?Medication ?Instructions ?Recorded ibuprofen 600 mg tablet 600 mg PO Q6HR PRN PAIN #30 tabs 02/08/14 cyclobenzaprine 10 mg tablet 10 mg PO TID PRN muscle s pasm #30 02/10/24 tabs ibuprofen 600 mg tablet 600 mg PO TID PRN pain #30 t abs 02/10/24 albuterol sulfate 90 mcg/actuation 2 puff inhalation Q 6H PRN 01/27/25 aerosol inhaler shortness of breath or wheez ing #8.5 grams azithromycin 500 mg tablet 500 mg PO QDAY 3 days #3 ta bs 01/27/25 (Zithromax TRI-JESSICA) prednisone 50 mg tablet 50 mg PO QDAY #3 tabs Allergies Allergy/AdvReac Type Severity Reaction Status Date / Time No Known Allergies Allergy Verified 01/27/25 01:11 Review of Systems Review of Systems Systems Reviewed: All systems reviewed, normal except as documented Past Medical History Past Medical History CARDIAC: Negative Cardiac Disorders, Atherosclerotic Heart Disease, Hypercholesterolemia, Congestive Heart Failure or Hypertension RESPIRATORY: Positive Asthma; Negative Chronic Obstructive Pulmonary Disease (COPD) or Pneumonia GASTROINTESTINAL: Negative Gastrointestinal Disorders GENITOURINARY: Positive Prostate Cancer; Negative Renal Disease ENT: Negative Blind or Deafness ENDOCRINE: 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); Negative Diabetes Mellitus Type 1 HEMATOLOGIC: Negative Sickle Cell Disease OTHER HISTORY: Positive Cancer and Prostate Cancer Surgical History SURGICAL: Positive Cardiac Surgery and Coronary Stent Social History SMOKING STATUS: Never smoker SUBSTANCE USE: does not use ED Exam Narrative Physical exam: See MDM for Dr. Mora's physical exam documentation. Course Course Course Narrative: CXR is ordered for determining the etiology of shortness of breath. Quality Measures none Orders Category Date Time Status Bedside COVID-19 Antigen Test NOW Care 01/27/25 01:16 Completed Bedside Influenza A&B Antigen Test NOW Care 01/27/25 01:[address] Screening NOW Care 01/27/25 02:31 Completed EKG (ED ONLY) *Do not use* NOW Care 01/27/25 01:16 Completed Insert IV NOW Care 01/27/25 01:16 Completed Straight [In and Out Catheter] X1 Care 01/27/25 01:[address] angio chest Stat Exams 01/27/25 02:31 Taken EKG (ED Only) Stat Exams 01/27/25 01:16 Draft US venous doppler LE BI Stat Exams 01/27/25 02:32 Taken XR chest 1V portable Stat Exams 01/27/25 01:21 Taken BNP [B-Type Natriuretic Peptide] Stat Lab 01/27/25 01:47 Completed Bilirubin,Direct Stat Lab 01/27/25 01:47 Completed CBC Stat Lab 01/27/25 01:47 Completed CMP [Comprehensive Metabolic Panel] Stat Lab 01/27/25 01:47 Completed D-Dimer Stat Lab 01/27/25 01:47 Completed Magnesium Stat Lab 01/27/25 01:47 Completed TSH [Thyroid Stimulating Hormone] Stat Lab 01/27/25 01:47 Completed Troponin I Stat Lab 01/27/25 01:47 Completed UA, C/S IF [Urinalysis, C/S if Indicated] Stat Lab 01/27/25 02:02 Completed Albuterol/Ipratr Rt Lily [Duoneb Rt Lily] Med 01/27/25 01:21 Discontinued 3 ml INH X1 ONE Azithromycin Po [Zithromax PO] Med 01/27/25 04:00 Discontinued 500 mg PO X1 ONE MethylPREDNISolone.* [SoluMEDROL Inj] Med 01/27/25 01:21 Discontinued 125 mg IVP X1 ONE Vital Signs Vital signs: Vital Signs Temperature 97.9 F 01/27/25 01:19 Pulse Rate 74 01/27/25 01:19 Respiratory Rate 19 01/27/25 01:19 Blood Pressure 136/60 H 01/27/25 01:19 Pulse Oximetry (%) 99 01/27/25 01:19 Oxygen Delivery Method Room Air 01/27/25 01:19 Shortness of Breath / Dyspnea MDM Narrative MDM Narrative:: This section includes all my notes and documentations, including HPI, PE, and ED course. Brant Mora MD HPI: 79yo male with history of CAD s/p stent placement, HTN, HLD, DM here with several days of worsening cough, productive cough, purulent sputum, and dyspnea. No fever or chills. No chest pain. No leg swelling. No orthopnea. No other complaints. ROS: All negative except as documented in HPI. Physical Exam: General: Alert and oriented. No acute distress when remaining still. Eyes: Conjunctivae and lids clear. ENT: No nasal congestion. Neck: Supple. Heart: RRR. Lungs: No respiratory distress. Decreased air movement with rhonchi. Abdomen: Soft and nontender. Skin: Warm and dry. Neuro: Alert and oriented X 3. I reviewed all diagnostic test results. My interpretation of the EKG is sinus rhythm with no ST-T changes. My interpretation of the chest x-ray is NAD. My review of the BLE US report is NAD. My review of the CTA chest report is mild to moderate bronchiectasis. My review of the leg US report is no DVT. Blood tests remarkable for D-Dimer 3040. UA unremarkable. COVID/Influenza negative. At this point, diagnoses include: Respiratory infection Treatment here included: Duoneb Azithromycin 500 mg orally Solumedrol 125 mg IV Significant treatment noted. Recommend outpatient management. Based on my best medical judgment, made decision no further evaluation or treatment indicated at this time. Patient understands and agrees to the discharge instructions customized and printed, see below. Discharge instructions from Dr. Mora: --After extensive evaluation, there is no life-threatening condition. Such as heart attack or pulmonary embolism (blood clots in your lungs) or pneumothorax (collapsed lung). --But you have respiratory infection (bronchitis). See attached handout. --No physical exertion for 3 days to help rest the lungs. --No smoking or exposure to smoking or pets or dust or cold or humidity. --Zithromax to kill the germs causing the bronchitis. --Prednisone to help decrease the swelling in the airways. --Albuterol 2 puffs every 4-6 hours for 24 hours to help keep the airways open. Then as needed for cough or shortness of breath. --See a private doctor on 01/29/2025 for recheck. Ask to review all test results and official radiology reports, to make sure you receive all necessary follow-ups and monitoring. Ask for referral to see a lung specialist. To make sure you don't have any serious underlying lung condition. --Seek immediate medical care with worsening or with any concerns. Brant Mora MD Patient data External records reviewed:: [facility] previous records (Per chart review, patient was seen here on 01/11/25 for postoperative examination.) Clinical information provided by:: patient Social determinants that could affect healthcare access:: none Patient has the following chronic illnesses:: CAD s/p stent placement, HTN, HLD, DM How is presenting disease/condition affected by chronic disease/condition?: uneffected by Evaluation data The following diagnostics were reviewed and interpreted by me:: lab results, radiology exam(s) and EKG tracing(s) (My interpretation of the EKG: NSR (67 bpm) with no ST-T changes. Brant Mora MD) Lab and/or radiology exams considered but not ordered:: none Interpretation Summary: I reviewed all diagnostic test results. My interpretation of the EKG is sinus rhythm with no ST-T changes. My interpretation of the chest x-ray is NAD. My review of the BLE US report is NAD. My review of the CTA chest report is mild to moderate bronchiectasis. My review of the leg US report is no DVT. Blood tests remarkable for D-Dimer 3040. UA unremarkable. COVID/Influenza negative. Medications / Prescriptions Medications or Prescriptions considered but not ordered:: none Medication administrations:: Medication Administration History Discontinued Medications Albuterol/Ipratropium (Albuterol/Ipratropium (Duoneb) Rt Lily 3 Ml Nebu) 3 ml INH X1 ONE Stop: 01/27/25 01:22 Last Admin: 01/27/25 02:14 Dose: 3 ml Documented By: SALLY Azithromycin (Azithromycin 250 Mg Tablet) 500 mg PO X1 ONE Stop: 01/27/25 04:01 Last Admin: 01/27/25 04:11 Dose: 500 mg Documented By: WO Methylprednisolone Sodium Succinate (Methylprednisolone Sod Succ 62.5 Mg/Ml 2ml Vial) 125 mg IVP X1 ONE Stop: 01/27/25 01:22 Last Admin: 01/27/25 02:19 Dose: 125 mg Documented By: BD Treatment here included: Duoneb Azithromycin 500 mg orally Solumedrol 125 mg IV Consultations Consultation(s) initiated? (list below): No Diagnosis Shortness of Breath Differential Diagnosis: acute exacerbation of chronic obstructive airways disease, congestive heart failure, community acquired pneumonia, asthma with exacerbation and pulmonary embolism Most likely diagnosis given after review of the tests above:: Respiratory infection Admission Indicated Admission indicated?: not indicated Explain why admission is indicated or not indicated:: With significant improvement and no condition needing emergent intervention, there was no indication for admission. Admission Request Was there a request for admission?: No Disposition Plan Disposition Plan: Discharge Discharge Attestation Discharge Attestation: The patient and all family members were given an opportunity to ask questions and understood the discharge instructions. Discharge instructions specifically effects, indications for sooner follow up or return to the emergency department, and the expected course of current diagnosis. Patient condition: Stable Discharge Plan Plan Patient Disposition: HOME (Self Care) Prescriptions/Referrals Prescriptions/Med Rec: New prednisone 50 mg tablet 50 mg PO QDAY Qty: 3 0RF albuterol sulfate 90 mcg/actuation HFA aerosol inhaler 2 puff inhalation Q6H PRN (Reason: shortness of breath or wheezing) Qty: 8.5 0RF azithromycin [Zithromax TRI-JESSICA] 500 mg tablet 500 mg PO QDAY 3 Days Qty: 3 0RF No Action ibuprofen 600 MG tablet 600 mg PO Q6HR PRN (Reason: PAIN) Qty: 30 0RF cyclobenzaprine 10 mg tablet 10 mg PO TID PRN (Reason: muscle spasm) Qty: 30 0RF ibuprofen 600 mg tablet 600 mg PO TID PRN (Reason: pain) Qty: 30 0RF Referrals: Eliceo Tierney MD [Primary Care Provider] - In 1 week Problem List Clinical Impression: Respiratory infection Patient/Caregiver Discharge Instructions Discharge Activity: activity as tolerated Education Materials: ED Bronchitis, Antibiotics (Child) Additional Instructions: Discharge instructions from Dr. Mora: --After extensive evaluation, there is no life-threatening condition.? Such as heart attack or pulmonary embolism (blood clots in your lungs) or pneumothorax (collapsed lung). --But you have respiratory infection (bronchitis). See attached handout. --No physical exertion for 3 days to help rest the lungs. --No smoking or exposure to smoking or pets or dust or cold or humidity. --Zithromax to kill the germs causing the bronchitis. --Prednisone to help decrease the swelling in the airways. --Albuterol 2 puffs every 4-6 hours for 24 hours to help keep the airways open. Then as needed for cough or shortness of breath. --See a private doctor on 01/29/2025 for recheck. Ask to review all test results and official radiology reports, to make sure you receive all necessary follow-ups and monitoring. Ask for referral to see a lung specialist. To make sure you don't have any serious underlying lung condition. --Seek immediate medical care with worsening or with any concerns. Instrucciones de marya del Dr. Mora: --Tras wilfrid evaluaci?n exhaustiva, no se observa ninguna afecci?n potencialmente mortal, rd un ataque card?aco, wilfrid embolia pulmonar (co?gulos de alden en los pulmones) o un neumot?rax (colapso pulmonar). --Tam padece wilfrid infecci?n respiratoria (bronquitis). Consulte el folleto adjunto. --No realice johnna?n esfuerzo f?sico zaira 3 d?as para ayudar a que los pulmones descansen. --No fume ni se exponga al humo, a las mascotas, al polvo, al fr?o ni a la humedad. --Zithromax para eliminar los g?rmenes que causan la bronquitis. --Prednisona para ayudar a disminuir la inflamaci?n de las v?as respiratorias. --Albuterol: 2 inhalaciones cada 4-6 horas zaira 24 horas para ayudar a mantener las v?as respiratorias abiertas. Posteriormente, seg?n sea necesario para la tos o la dificultad para respirar. --Consulte con un m?dico particular el 10/03/2024 para wilfrid nueva evaluaci?n. Solicite la revisi?n de todos los resultados de las pruebas y los informes radiol?gicos oficiales para asegurarse de recibir todos los seguimientos y la monitorizaci?n necesarios. Solicite wilfrid derivaci?n a un neum?logo. Para asegurarse de que no tenga ninguna afecci?n pulmonar subyacente grave. --Busque atenci?n m?dica inmediata si presenta empeoramiento o cualquier inquietud. Print Language: Estonian Stand Alone Forms: Leanne Award Info., Patient Portal Info Letter
--- NOTE | 2025-01-27 01:21 | XR_ITS ---
Examination: PA chest single view Technique: Upright PA chest single view Date and time: January 27, 2025, 0135 hrs., Comparison November 19, 2024 Indications: Shortness of breath today. Findings: Normal heart size Moderate hyperexpansion. No lobar pneumonia or pulmonary edema. Prominent osteopenia Old right-sided rib fractures Impression: COPD with moderate hyperexpansion. Negative for pneumonia or pulmonary edema
[2025-01-27 02:01] LABS: Basophils # (Auto) 0.1 Thou/mm3 (0.0-0.2); Basophils % (Auto) 1 % (0-2.5); Eosinophils # (Auto) 0.3 Thou/mm3 (0.0-0.5); Eosinophils % (Auto) 4 % (0-10); Hematocrit 31.7 % (41.0-53.0); Hemoglobin 9.9 g/dL (13.5-16.0); Immature Granulocytes Auto 0.02 Thou/mm3 (0.00-0.00); Lymphocytes # (Auto) 2.4 Thou/mm3 (1.0-4.8); Lymphocytes % (Auto) 32 % (10-50); Mean Corpuscular HGB Conc 31.2 g/dl (31.0-37.0); Mean Corpuscular Hemoglobin 25.7 pg (25.0-35.0); Mean Corpuscular Volume 82 fL (80-100); Monocytes # (Auto) 0.5 Thou/mm3 (0.0-0.8); Monocytes % (Auto) 7 % (0-12); Neutrophils # (Auto) 4.2 Thou/mm3 (1.8-7.7); Neutrophils % (Auto) 57 % (37-80); Nucleated Red Blood Cell # 0.00 Thou/mm3 (0.00-0.00); Nucleated Red Blood Cell % 0 /100 WBC (0); Platelet Count 449 Thou/mm3 (140-440); RDW Standard Deviation 44.3 fL (35.1-43.9); Red Blood Count 3.85 Miln/mm3 (4.50-5.90); White Blood Count 7.5 Thou/mm3 (3.8-10.6)
[2025-01-27 02:06] LABS: Collection Type, Urine Clean Catch
[2025-01-27 02:12] LABS: Bacteria,Urine Rare; Bilirubin,Urine Negative (Negative); Blood,Urine Negative (Negative); Clarity,Urine Clear (Clear/Hazy); Color,Urine Lt-Yellow (Lt Yel-Yel); Culture Indicated,Urine Not Indicated; Glucose, Urine Negative (Negative); Ketones,Urine Negative (Negative); Leukocyte Esterase,Urine Negative (Negative); Nitrite,Urine Negative (Negative); PH,Urine 7.5 (5.0-7.0); Protein,Urine Negative (Neg - Trace); RBC,Urine 4 /hpf (0-3); Specific Gravity,Urine 1.009 (1.001-1.035); Squamous Epithelial Cell,Urine < 1 /hpf (0-5); Urobilinogen,Urine Negative mg/dL (0.0-1.0); WBC,Urine 1 /hpf (0-5)
[2025-01-27 02:14] LABS: B-Type Natriuretic Peptide 83 pg/mL (0-100)
[2025-01-27] MEDS: ALBUTEROL/IPRATROPIUM (Duoneb) RT SOL 3 ML NEBU INH (02:14)
[2025-01-27 02:15] VITALS: PULSE 60; RESP 18; O2SAT 100
[2025-01-27 02:17] LABS: Alanine Aminotransferase 17 U/L (10-49); Albumin, Serum 4.1 gm/dL (3.4-4.8); Albumin/Globulin Ratio 1.6 (1.2-2.2); Alkaline Phosphatase 108 U/L (46-116); Anion Gap 7 (7-16); Aspartate Amino Transferase 27 U/L (0-34); BUN/Creatinine Ratio 10 Ratio (12-20); Bilirubin,Direct 0.2 mg/dL (0.0-0.3); Bilirubin,Total 0.6 mg/dL (0.3-1.2); Blood Urea Nitrogen 9 mg/dL (9-23); Calcium 9.2 mg/dL (8.3-10.6); Calcium (Corrected) 9.2 mg/dL (8.5-10.1); Carbon Dioxide 26.7 mMol/L (20.0-31.0); Chloride 105 mMol/L (98-107); Creatinine (Component) 0.9 mg/dL (0.6-1.3); Estimated Creatinine Clearance 64.0 mL/min (>60); Globulin 2.6 gm/dL (2.3-3.5); Glucose 109 mg/dL (74-106); Magnesium 2.2 mg/dL (1.6-2.6); Osmolality,Calculated 277 (275-295); Potassium 4.1 mMol/L (3.4-5.1); Sodium 139 mMol/L (136-145); Thyroid Stimulating Hormone 1.42 uIU/mL (0.55-4.78); Total Protein 6.7 gm/dL (5.7-8.2); Troponin I < 0.002 ng/mL (0.0-0.045); eGFR > 60 See Note
[2025-01-27] MEDS: MethylPREDNISolone SOD SUCC 62.5 MG/ML 2ML VIAL 125 MG IVP (02:19)
[2025-01-27 02:23] LABS: D-Dimer 3040 ng/mL (<600)
--- NOTE | 2025-01-27 02:31 | XR_ITS ---
Examination: CTA chest with intravenous contrast 2-D reconstructions 3-D reconstructions, vascular Date and time of exam: January 27, 2025, 0252 hrs., Comparison November 19, 2024 Indications: Shortness of breath chest pain today elevated d-dimer on laboratory examination CTDI: vol (mGy) 10.85 DLP: (mGycm) 322 Technique: Multiple axial sections of the thorax have been obtained. 3 mm slice thickness, from below the hemidiaphragms to above the apices of the lungs. Mediastinal and lung density settings have been obtained. 2-D sagittal and coronal reconstructions. 3-D angiographic renderings, 3-D volume renderings, 3D post processing, vascular maximum intensity projections obtained. Contrast administered is 100 cc Isovue-370 intravenous. Low dose protocols were performed. One or more of the following dose reduction techniques were used; automated exposure control, adjustment of the mA and/or KV according to patient size, use of iterative reconstruction technique. Findings: No thoracic aortic aneurysm dilatation or dissection No pulmonary artery emboli Mild enlargement left atrium Mild calcification left anterior descending coronary artery No mediastinal lymphadenopathy Mildly dilated bronchi throughout the lungs especially lower lobes No pneumonia or pulmonary edema No visualized liver or splenic lesion No gallstones No pancreatic mass No hydronephrosis Impression: Negative for pulmonary artery emboli No mediastinal lymphadenopathy No pneumonia or pulmonary edema. Mild diffuse bronchiectasis
--- NOTE | 2025-01-27 02:32 | XR_ITS ---
Examination: Venous duplex lower extremity sonogram, bilateral. Date and time of exam: January 27, 2025, 0314 hrs. Indications: Leg swelling and pain today with shortness of breath Technique: Multiple sonographic images of the deep venous system have been obtained. B-mode/2-D grayscale imaging of vascular structures and Doppler spectral analysis (waveforms) and color performed Both legs are examined. Findings: Deep venous systems do not demonstrate abnormal echogenicity. All visualized deep veins exhibit compressibility. All visualized deep veins exhibit augmentation. Impression: Negative for deep vein thrombosis
--- NOTE | 2025-01-27 03:57 | PRELIM_ITS ---
CT angiogram of the chest with intravenous contrast (axial sections with sagittal and coronal reformats). January 27, 2025 at 0252 hours Clinical History: Shortness of breath, high dimer. Technique:Helical axial sections with sagittal and coronal reformats of the chest were obtained with intravenous contrast. Iterative reconstruction technique was employed to reduce patient radiation exposure. 3D/MIP reconstructed images were also provided. Contrast Dose: Not available. Radiation Dose: Total exam DLP 322 mGy/cm. Comparison: Compared with the prior CT study dated January 27, 2025. Findings: There is no filling defect within the pulmonary artery divisions to suggest pulmonary thromboembolism. The mediastinum demonstrates no evidence of mass or lymphadenopathy. The thoracic aorta is unremarkable. There is a small pericardial effusion. Mild to moderate bronchiectasis. The lungs are clear. No evidence of pleural effusion or pneumothorax. Degenerative changes of the imaged portions of the spine. No acute fractures. The visualized upper abdominal viscera are unremarkable. Dilated left atrium. Coronary arteries calcifications. Impression: 1. No CT evidence of pulmonary thromboembolism. 2. Coronary arteries calcifications. If acute myocardial infarction is clinically suspected consider correlation with troponin. 3. Dilated left atrium. 4. Mild to moderate bronchiectasis. 5. Small pericardial effusion. Report Electronically Signed By: Titi Mcneil 01/27/2025 3:57:16 AM [EST]
[2025-01-27] MEDS: AZITHROMYCIN 250 MG TABLET 500 MG PO (04:11)
[2025-01-27 04:12] VITALS: BP 132/76; PULSE 76; RESP 18; TEMP 36.4; O2SAT 95
--- NOTE | 2025-01-27 04:29 | PRELIM_ITS ---
Bilateral lower extremity venous Doppler ultrasound with wave Doppler spectral analysis. January 27, 2025 0314 hours Clinical history: Edema high dimer. Technique: Duplex scan of the bilateral lower extremity deep venous systems was performed utilizing 2D grayscale imaging, Doppler spectral analysis and color flow Doppler and with compression. Comparison: None available at the time of this report. Findings: Hooker scale, color flow and spectral Doppler evaluation of the lower extremity deep veins was performed. Right: The common femoral, superficial femoral and popliteal veins are patent and compressible. Normal respiratory variation and augmentation are noted. The great saphenous vein is patent at the level of the saphenofemoral junction. The posterior tibial and peroneal veins are patent and compressible. There is no evidence of occlusive or nonocclusive thrombus. Left: The common femoral, superficial femoral and popliteal veins are patent and compressible. Normal respiratory variation and augmentation are noted. The great saphenous vein is patent at the level of the saphenofemoral junction. The posterior tibial and peroneal veins are patent and compressible. There is no evidence of occlusive or nonocclusive thrombus. Impression: No sonographic evidence of deep venous thrombosis in both lower extremities. Report Electronically Signed By: Titi Mcneil 01/27/2025 4:29:13 AM [EST]
== END 2025-01-27 04:15 | disposition home or self-care (01) ==
PROVIDERS: Emergency Provider Emergency Medicine; PCP Family Medicine
DX: J98.8 Other specified respiratory disorders (principal); J47.9 Bronchiectasis, uncomplicated; I10 Essential (primary) hypertension; E78.00 Pure hypercholesterolemia, unspecified; E11.9 Type 2 diabetes mellitus without complications; I25.10 Atherosclerotic heart disease of native coronary artery without angina pectoris; Z95.5 Presence of coronary angioplasty implant and graft
CPT/HCPCS: 36415; 36600; 71045; 71275; 80053; 81001; 82248; 82803; 83735; 83880; 84443; 84484; 85025; 85379; 87400; 87811; 93005; 93970; 94640; 96374; 99284; A4649; A9270; J2919; Q9967